=== PATIENT | female | born 1970 | race Caucasian/White ===

== ENCOUNTER 2017-11-09 14:29 | Emergency (ER) | payer OTHER ==
--- NOTE | 2017-11-09 14:58 | EDPHY ---
H & P Stated Complaint: Rolled R ankle today Time Seen by Provider: 11/09/17 14:57 HPI/ROS: HPI: This is a 47-year-old female who presents with Chief Complaint: Rolled right ankle Location: right lateral ankle Quality: injury Duration: prior to arrival Signs and Symptoms: No bleeding, no radiation, no numbness, no weakness, no tingling, no incontinence, no decreased range of motion, no swelling, no pain, no fever Timing: Acute Severity: 01/27 Context: Patient complains of rolling her ankle while getting into her vehicle prior to arrival. Upon description it appears that she lisa it her right ankle. She complains of pain moderate in nature, nonradiating in the lateral aspect. She has a history of ankle sprains on the right side. She denies any paresthesias/weakness/decreased range of motion. She has not taking any over- the-counter pain medications or applied ice. Pain is increased with weight- bearing. LMP 1-2 weeks ago. Modifying Factors: Comment: ROS: see HPI Constitutional: No fever, no chills, no weight loss Eyes: No blurred vision Respiratory: No shortness of breath, no cough Cardiovascular: No chest pain Gastrointestinal: No nausea, no vomiting no diarrhea Genitourinary: No dysuria Extremities: No myalgias Neurologic: No weakness, no numbness Skin: No rashes Hematologic: No bruising, no bleeding MEDICAL/SURGICAL/SOCIAL HISTORY: Medical history: Asthma Surgical history: Denies Social history: Nonsmoker. Employed CONSTITUTIONAL: Overweight pleasant adult middle-aged female, awake and alert, no obvious distress HEENT: Atraumatic and normocephalic. NECK: supple, no midline tenderness, flexion 45 degrees, extension 45 degrees, right and left lateral flexion 45 degrees. No meningismus. Cardiovascular: Normal S1/S2, regular rate, regular rhythm, without murmur rub or gallop. PULMONARY/CHEST: Symmetrical and nontender. no crepitus. Clear to auscultation bilaterally. Good air movement. No accessory muscle usage. ABDOMEN: Soft, nondistended, nontender, no ecchymosis. PELVIC: no pain with rocking; bilateral hips flexion 125 degrees, extension 30 degrees, with no pain internal rotation and no pain external rotation. BACK: No midline tenderness, no paraspinous spasm, deep tendon reflexes 2/2, no pain with straight leg raise, No foot drop. Achilles reflexes are equal bilaterally. Able to walk on heels and toes without difficulty. EXTREMITIES: 2/2 pulses, strength 5/5, right Ankle: Mild lateral malleolus swelling; no ecchymosis appreciated. Plantar flexion to 50, dorsiflexion to 20 . Foot inversion to 35 degree. Mild tenderness/swelling Anterior talofibular ligament. No tenderness/swelling Calcaneofibular ligament, mild tenderness/ swelling posterior talofibular ligament, no tenderness/swelling posterior inferior tibiofibular ligament. Achilles tendon intact. DIP/PIP/MCP flexion/ extension intact with good light touch sensation. no deformities, no clubbing, no cyanosis or edema. NEUROLOGICAL: no focal neuro deficits. GCS 15. Light touch sensation intact. SKIN: Warm and dry, no erythema. no rash. Good capillary refill. Source: Patient Exam Limitations: No limitations - Personal History LMP (Females 10-55): 8-14 Days Ago Current Tetanus Diphtheria and Acellular Pertussis (TDAP): Yes - Medical/Surgical History Hx Asthma: Yes Hx Chronic Respiratory Disease: No Hx Diabetes: No Hx Cardiac Disease: No Hx Renal Disease: No Hx Cirrhosis: No Hx Alcoholism: No Hx HIV/AIDS: No Hx Splenectomy or Spleen Trauma: No Other PMH: asthma - Social History Smoking Status: Never smoked Constitutional: Initial Vital Signs Temperature (C) 36.7 C 11/09/17 14:32 Heart Rate 68 11/09/17 14:32 Respiratory Rate 18 11/09/17 14:32 Blood Pressure 154/80 H 11/09/17 14:32 O2 Sat (%) 98 11/09/17 14:32 O2 Delivery Mode Room Air Allergies/Adverse Reactions: No Known Allergies Allergy (Verified 11/09/17 14:31) Home Medications: Medication Instructions Recorded NK [No Known Home Meds] 11/09/17 Medical Decision Making - Diagnostics Imaging Results: Imaging Impressions Ankle X-Ray 11/09/17 14:36 Impression: Negative for fracture. Procedures: Procedure: Splint placement. A ankle stirrup splint was applied by the Emergency Room model technician. After application of the splint I returned and re-examined the patient. The splint was adequately immobilizing the joint and distal to the splint the patient's circulation and sensation was intact. ED Course/Re-evaluation: X-ray my read shows no fracture/dislocation No signs of neurovascular compromise/tenting of skin/compartment syndrome/ extremities and joints examined above and below area of concern and are neurovascularly intact. Placed in ankle stirrup splint, given crutches, start with toe-touch weight- bearing status and advance as tolerated This patient was seen under the supervision of my secondary supervising physician. I evaluated care for this patient independently. Discussed this patient with Dr. Guillory who did not see the patient. Differential Diagnosis: Differential diagnosis includes but is not limited to tibia fracture, fibula fracture, Lis Franc fracture, sprain, nerve injury. Departure - Departure Disposition: Home, Routine, Self-Care Clinical Impression: Moderate right ankle sprain Qualifiers: Encounter type: initial encounter Qualified Code(s): S93.401A - Sprain of unspecified ligament of right ankle, initial encounter Condition: Good Instructions: Ankle Sprain (ED), Crutch Instructions (ED), Ankle Stirrup Splint (ED) Additional Instructions: Wear the ankle stirrup splint while out of bed and until pain free. Use crutches to aid ambulation. Start with toe-touch weight-bearing status and slowly advance as tolerated. Take Tylenol 650 mg every 4 hours and/or Ibuprofen 600 mg every 8 hours with food as needed for pain. Apply ice for 30 minutes at a time; 2-3 times per day for the next 1-2 days. Follow up with Orthopedics in 1-2 weeks if symptoms persist at which time they will evaluate and recommend with you if conservative management versus MRI ankle is indicated. The x-rays obtained in the emergency department today demonstrate no evidence of an obvious fracture. Sometimes fractures are not obvious on the initial set of x-rays performed in the ED. For this reason, you should have repeat x-rays performed in 7-10 days if you are having any pain exclude the possibility of an occult fracture. Activity: Limit activity to pain tolerance. Activity resulting in pain should be avoided. Return to the ER immediately if you experience new or worsening pain, discoloration, numbness, tingling, or any other symptoms that concern you. Referrals: Tony Isaacs MD [Medical Doctor] - As per Instructions
[2017-11-09 15:38] VITALS: BP 132/81
== END 2017-11-09 15:39 | disposition home or self-care (01) ==
DX: S93.401A Sprain of unspecified ligament of right ankle, initial encounter (principal); J45.909 Unspecified asthma, uncomplicated; X50.9XXA Other and unspecified overexertion or strenuous movements or postures, initial encounter; Y99.8 Other external cause status; Y93.89 Activity, other specified
CPT/HCPCS: L4350